=== PATIENT | male | born 1980 | race Two or more races ===

== ENCOUNTER 2020-08-28 13:04 | Inpatient (IN) ==
--- NOTE | 2020-08-28 13:33 | DR.EXTPAIN ---
HPI Time seen Time Seen by Provider: 08/28/20 13:32 PCP Primary Care Physician: MADELINE HPI Comment HPI Comment: PATIENT IS 39YRR OLD MALE IN ER WITH ABDOMINAL SWELLING AND PAIN AND LOWER EXTREMITY PAIN. Complaint/Symptoms Chief Complaint Doctor Comments: ABDOMINAL PAIN AND LOWER EXTREMITY SWELLING. Chief Complaint:: PT C/O INCREASED SWELLING AND PAIN INTO RIGHT LEG X 2-3 WEEKS. PT ALSO C/O SWELLING INTO ABDOMEN COVID-19 Coronavirus risk:travel/contact w/high risk person: No Has patient experienced Coronavirus symptoms: No Nurses notes reviewed Nurses Notes Review: Yes Source History Provided: Patient Mode of arrival Mode of Arrival: Ambulatory Timing Onset of Chief Complaint: 08/28/20 Context History of: None Associated signs and symptoms Associated Signs and Symptoms: Pain, Swelling, Abdominal Pain and Shortness of Breath PMH PMH Past Medical History: No Past Surgical History: No Family History History of Family Medical Conditions: No Social History Does patient currently use any type of tobacco product: No Have you used tobacco products in the last 12 months: No Type of Tobacco Use: None Does any household member use tobacco: No Alcohol Use: None Do you use any recreational Drugs:: No Lives With: Alone Lives Where: Home Travel Risk Coronavirus risk:travel/contact w/high risk person: No Has patient experienced Coronavirus symptoms: No Infectious screening In the last 2 months have you had wt loss of >10#?: NO Have you had fever, night sweats or hemotysis?: No Have you traveled outside the country in the last 6 months?: No Isolation: Standard PE Vital Signs Vitals: Temperature 100.2 F Pulse Rate 114 Respiratory Rate 24 Blood Pressure 183/99 O2 Sat by Pulse Oximetry 98 ROR Labs Reviewed Result Diagrams: 08/28/20 14:16 08/28/20 14:16 Laboratory: WBC 7.3 X10^3/uL (3.6-10.0) 08/28/20 14:16 RBC 2.47 X10^6/uL (4.7-6.0) L 08/28/20 14:16 Hgb 8.4 g/dL (13.5-18.0) L 08/28/20 14:16 Hct 25.4 % (42.0-54.0) L 08/28/20 14:16 MCV 102.6 fL (80.0-100.0) H 08/28/20 14:16 MCH 33.9 pg (27.0-34.0) 08/28/20 14:16 MCHC 33.0 g/dL (33.0-35.0) 08/28/20 14:16 RDW 16.0 % (11.6-16.5) 08/28/20 14:16 Plt Count 32 X10^3/uL (150.0-450.0) L 08/28/20 14:16 MPV 9.9 fL (7.4-11.0) 08/28/20 14:16 Neut % (Auto) 73.9 % (42.0-75.0) 08/28/20 14:16 Lymph % (Auto) 12.1 % (21.0-51.0) L 08/28/20 14:16 Green % (Auto) 10.2 % (0.0-13.0) 08/28/20 14:16 Eos % (Auto) 2.8 % (0.9-2.9) 08/28/20 14:16 Baso % (Auto) 1.0 % (0.2-1.0) 08/28/20 14:16 Neut # (Auto) 5.4 x10^3/uL (2.2-4.8) H 08/28/20 14:16 Lymph # (Auto) 0.9 X10^3/uL (1.3-2.9) L 08/28/20 14:16 Green # (Auto) 0.7 x10^3/uL (0.3-0.8) 08/28/20 14:16 Eos # (Auto) 0.2 x10^3/uL (0.0-0.2) 08/28/20 14:16 Baso # (Auto) 0.1 X10^3/uL (0.0-0.1) 08/28/20 14:16 Absolute Nucleated RBC 0.1 /100WBC 08/28/20 14:16 Sodium 140 mmol/L (136-145) 08/28/20 14:16 Corrected Sodium 141 mmol/L (136-145) 08/28/20 14:16 Potassium 3.6 mmol/L (3.5-5.1) 08/28/20 14:16 Chloride 106 mmol/L (98-107) 08/28/20 14:16 Carbon Dioxide 26.2 mmol/L (21-32) 08/28/20 14:16 BUN 7 mg/dL (7-18) 08/28/20 14:16 Creatinine 0.77 mg/dL (0.70-1.30) 08/28/20 14:16 Est GFR (MDRD) Af Amer > 60 (>60) 08/28/20 14:16 Est GFR (MDRD) Non-Af > 60 (>60) 08/28/20 14:16 Glucose 139 mg/dL (65-99) H 08/28/20 14:16 Calcium 7.7 mg/dL (8.5-10.1) L 08/28/20 14:16 Corrected Calcium 9.5 mg/dL (8.5-10.1) 08/28/20 14:16 Total Bilirubin 5.40 mg/dL (0.2-1.0) H 08/28/20 14:16 AST 161 Units/L (15-37) H 08/28/20 14:16 ALT 46 Units/L (12-78) 08/28/20 14:16 Alkaline Phosphatase 290 Units/L (46-116) H 08/28/20 14:16 B-Natriuretic Peptide 122 pg/mL (0-79) H 08/28/20 14:16 Total Protein 8.0 g/dL (6.4-8.2) 08/28/20 14:16 Albumin 1.8 g/dL (3.4-5.0) L 08/28/20 14:16 Globulin 6.2 g/dL (2.5-4.5) H 08/28/20 14:16 Albumin/Globulin Ratio 0.3 Ratio (1.1-2.1) L 08/28/20 14:16 Amylase 85 Units/L (25-115) 08/28/20 14:16 Lipase 161 Units/L (73-393) 08/28/20 14:16 Specimen Type Clean catch urine 08/28/20 14:11 Urine Color Elisha (YELLOW) 08/28/20 14:11 Urine Appearance Slightly hazy (CLEAR) 08/28/20 14:11 Urine pH 6.0 (5.0 - 8.0) 08/28/20 14:11 Ur Specific [place] 1.025 (1.000-1.030) 08/28/20 14:11 Urine Protein 2+ (NEGATIVE) 08/28/20 14:11 Urine Glucose (UA) Negative (NEGATIVE) 08/28/20 14:11 Urine Ketones 1+ (NEGATIVE) 08/28/20 14:11 Urine Occult Blood 2+ (NEGATIVE) 08/28/20 14:11 Urine Nitrite Negative (NEGATIVE) 08/28/20 14:11 Urine Bilirubin 3+ (NEGATIVE) 08/28/20 14:11 Urine Urobilinogen 3+ (NORMAL) 08/28/20 14:11 Ur Leukocyte Esterase 1+ (NEGATIVE) 08/28/20 14:11 Urine RBC 3-5 /HPF (0-3) A 08/28/20 14:11 Urine WBC 20-30 /HPF (0-5) A 08/28/20 14:11 Ur Squamous Epith Cells Few /HPF (NEGATIVE) 08/28/20 14:11 Amorphous Sediment 1+ /HPF (NEGATIVE) 08/28/20 14:11 Urine Bacteria 2+ /HPF (NEGATIVE) 08/28/20 14:11 Hyaline Casts Few /LPF (NEGATIVE) 08/28/20 14:11 Other Casts Rare /LPF (NEGATIVE) 08/28/20 14:11 Urine Mucus Numerous /HPF (NEGATIVE) 08/28/20 14:11 Ur Culture Indicated? Yes/culture set up 08/28/20 14:11 SARS CoV-2 RNA Rapid TINO Negative (NEGATIVE) 08/28/20 15:01 Opioid Opioid Risk Tool Age ([place] box if 16-45): Yes History of Preadolescent Sexual Abuse: No Total: 1 Total Score Risk Category: Low Risk Copyright: Alejandro GARCIA predicting aberrant behaviors Instructions Instructions: Otitis Media, Adult, [id number] Forms: Precautions for COVID19 Patient Portal Social Distancing
[2020-08-28 14:24] LABS: BILIRUBIN,URINE 3+ (NEGATIVE); BLOOD/HEMOGLOBIN,URINE 2+ (NEGATIVE); GLUCOSE, URINE NEGATIVE (NEGATIVE); KETONES,URINE 1+ (NEGATIVE); LEUKOCYTE ESTERASE ,URINE 1+ (NEGATIVE); NITRITES,URINE NEGATIVE (NEGATIVE); PROTEIN,URINE 2+ (NEGATIVE); UROBILINOGEN,URINE 3+ (NORMAL)
[2020-08-28 14:25] LABS: BASOPHILS # (AUTO) 0.1 X10^3/uL (0.0-0.1); EOSINOPHILS # (AUTO) 0.2 x10^3/uL (0.0-0.2); EOSINOPHILS % (AUTO) 2.8 % (0.9-2.9); HEMATOCRIT 25.4 % (42.0-54.0); HEMOGLOBIN 8.4 g/dL (13.5-18.0); LYMPHOCYTES # (AUTO) 0.9 X10^3/uL (1.3-2.9); LYMPHOCYTES % (AUTO) 12.1 % (21.0-51.0); MEAN CORPUSCULAR HEMOGLOBIN 33.9 pg (27.0-34.0); MEAN CORPUSCULAR VOLUME 102.6 fL (80.0-100.0); MEAN PLATELET VOLUME 9.9 fL (7.4-11.0); MONOCYTES # (AUTO) 0.7 x10^3/uL (0.3-0.8); MONOCYTES % (AUTO) 10.2 % (0.0-13.0); NEUTROPHILS # (AUTO) 5.4 x10^3/uL (2.2-4.8); NEUTROPHILS % (AUTO) 73.9 % (42.0-75.0); PLATELET COUNT 32 X10^3/uL (150.0-450.0); RED BLOOD COUNT 2.47 X10^6/uL (4.7-6.0); WHITE BLOOD COUNT 7.3 X10^3/uL (3.6-10.0)
[2020-08-28 14:40] LABS: ALANINE AMINOTRANSFERASE 46 Units/L (12-78); ALBUMIN 1.8 g/dL (3.4-5.0); ALKALINE PHOSPHATASE 290 Units/L (46-116); ASPARTATE AMINO TRANSFERASE 161 Units/L (15-37); BLOOD UREA NITROGEN 7 mg/dL (7-18); CALCIUM 7.7 mg/dL (8.5-10.1); CARBON DIOXIDE 26.2 mmol/L (21-32); CHLORIDE 106 mmol/L (98-107); COR CA(FOR HYPOALB) 9.5 mg/dL (8.5-10.1); COR NA(FOR HYPERGLY) 141 mmol/L (136-145); CREATININE 0.77 mg/dL (0.70-1.30); SODIUM 140 mmol/L (136-145); eGFR NON BLACK RACES > 60 (>60)
[2020-08-28 14:40] LABS: APPEARANCE,URINE SLIGHTLY HAZY (CLEAR); COLOR,URINE AMBER (YELLOW)
[2020-08-28 14:41] LABS: BACTERIA,URINE 2+ /HPF (NEGATIVE); HYALINE CASTS, URINE FEW /LPF (NEGATIVE); MUCUS,URINE NUMEROUS /HPF (NEGATIVE)
[2020-08-28 14:42] LABS: AMORPHOUS SEDIMENT,UR 1+ /HPF (NEGATIVE); OTHER CASTS, URINE RARE /LPF (NEGATIVE); SQUAMOUS EPITHELIAL CELL,UR FEW /HPF (NEGATIVE)
--- NOTE | 2020-08-28 14:52 | CT ---
PROCEDURE: CT Abdomen and Pelvis without Contrast .HISTORY: Increased swelling and pain to abdomen.TECHNIQUE: Axial images were performed through the abdomen and pelvis without the administration of IV contrast with multiplanar reformations . Oral contrast was not administered . Dose reduction techniques including Automated Exposure Control (AEC) and adjustment of mA and kV were utilized .COMPARISON: None .TECHNICAL QUALITY: Satisfactory .FINDINGS:Clear lung bases.Irregular liver contour consistent with cirrhosis with mild hepatomegaly at 26.5 cm. Spleen and adrenals show no significant abnormality. Mild peripancreatic stranding could represent pancreatitis with no pseudocyst. Kidneys show no stones or obstruction.Small gallstones in the gallbladder with thickened wall and normal size biliary tree.Moderate ascites throughout the abdomen with no pneumoperitoneum.Normal aorta.No lymphadenopathy.No bowel obstruction or inflammation. Normal appendix right lower quadrant.Large amount of fluid in the pelvis with no masses. Normal urinary bladder.No acute bony abnormality.IMPRESSION:1. Cirrhosis with moderate to large amount of ascites present.2. Cholelithiasis with thickened gallbladder wall and could be related to acute cholecystitis or patient's ascites.3. Possible mild acute pancreatitis and clinical correlation recommended.Electronically signed by: Everett Little (August 28, 2020 14:50:14)
[2020-08-28 15:05] LABS: AMYLASE 85 Units/L (25-115); LIPASE 161 Units/L (73-393)
--- NOTE | 2020-08-28 15:32 | RAD ---
EXAM: CHEST X-RAYHISTORY: Increased swelling and pain of abdomen.TECHNIQUE: AP chest x-ray dated 08/28/2020 at 2:24 PM.COMPARISON: None available.FINDINGS:Note: Exam degraded by shallow inspiratory effort.There is a shallow inspiratory effort with mild prominence of the bronchopulmonary markings; while the findings may represent artifactual change from shallow inspiratory effort, mild noncardiogenic (or cardiogenic) pulmonary congestion, bronchitis, and early bronchopneumonia cannot be excluded in the appropriate clinical setting. Clinical correlation is advised. No focal consolidative lung infiltrate, pleural effusion, or pneumothorax is seen. The heart size and mediastinum are within normal limits. The visualized bony structures are within normal limits.IMPRESSION:1. Shallow inspiratory effort with mild prominence of the bronchopulmonary markings; DDX includes artifactual change from shallow inspiratory effort, mild noncardiogenic (or cardiogenic) pulmonary congestion, mild bronchitis, and interstitial pneumonia (e.g. Covid pneumonia) in the appropriate clinical setting. Recommend clinical correlation and appropriate follow evaluation as clinically warranted.2. Consider follow-up evaluation with noncontrast chest CT to rule out Covid pneumonia as clinically warranted.Electronically signed by: Lore Hunt (August 28, 2020 15:30:32)
[2020-08-28] MEDS ORDERED: LASIX IVP ONE ×3 (15:45→21:00)
[2020-08-28] MEDS ORDERED: PEPCID 20 MG IV PREMIX* 20 MG/50 ML BAG IV PRN (16:28)
[2020-08-28] MEDS ORDERED: LASIX IVP SCH (17:00)
[2020-08-28] MEDS ORDERED: NS 250 ML IV 250 ML IV ONE (17:11)
[2020-08-28] MEDS: ROCEPHIN VIAL 1 GRAM 1 G in NS 100 ML IV + SPIKE MINIBAG* 100 ML IV SCH (17:28)
[2020-08-28] MEDS: CHRONULAC PO SCH ×2 (18:16→21:00)
[2020-08-28] MEDS: ZITHROMAX INJ 500 MG VIAL 500 MG in NS 250 ML IV 250 ML IV SCH (19:27)
[2020-08-28] MEDS ORDERED: DUONEB 0.5 MG/3 MG (3 mL) NEB ONE (19:57)
[2020-08-28] MEDS: DUONEB 0.5 MG/3 MG (3 mL) NEB SCH (21:00)
[2020-08-29 05:35] LABS: BASOPHILS # (AUTO) 0.1 X10^3/uL (0.0-0.1); BASOPHILS % (AUTO) 1.2 % (0.2-1.0); EOSINOPHILS # (AUTO) 0.2 x10^3/uL (0.0-0.2); EOSINOPHILS % (AUTO) 3.2 % (0.9-2.9); HEMATOCRIT 23.5 % (42.0-54.0); HEMOGLOBIN 7.8 g/dL (13.5-18.0); LYMPHOCYTES # (AUTO) 1.3 X10^3/uL (1.3-2.9); LYMPHOCYTES % (AUTO) 16.6 % (21.0-51.0); MEAN CORPUSCULAR HEMOGLOBIN 34.3 pg (27.0-34.0); MEAN CORPUSCULAR HGB CONC 33.2 g/dL (33.0-35.0); MEAN CORPUSCULAR VOLUME 103.4 fL (80.0-100.0); MEAN PLATELET VOLUME 9.6 fL (7.4-11.0); MONOCYTES # (AUTO) 0.9 x10^3/uL (0.3-0.8); MONOCYTES % (AUTO) 12.1 % (0.0-13.0); NEUTROPHILS # (AUTO) 5.1 x10^3/uL (2.2-4.8); NEUTROPHILS % (AUTO) 66.9 % (42.0-75.0); PLATELET COUNT 35 X10^3/uL (150.0-450.0); RED BLOOD COUNT 2.27 X10^6/uL (4.7-6.0); RED CELL DISTRIBUTION WIDTH 16.1 % (11.6-16.5); WHITE BLOOD COUNT 7.6 X10^3/uL (3.6-10.0)
[2020-08-29] MEDS: CHRONULAC PO SCH ×3 (05:46→21:25)
[2020-08-29 05:48] LABS: ALANINE AMINOTRANSFERASE 38 Units/L (12-78); ALBUMIN 1.7 g/dL (3.4-5.0); ALKALINE PHOSPHATASE 245 Units/L (46-116); AMYLASE 70 Units/L (25-115); ASPARTATE AMINO TRANSFERASE 146 Units/L (15-37); BLOOD UREA NITROGEN 8 mg/dL (7-18); CALCIUM 7.6 mg/dL (8.5-10.1); CARBON DIOXIDE 24.3 mmol/L (21-32); CHLORIDE 105 mmol/L (98-107); COR CA(FOR HYPOALB) 9.4 mg/dL (8.5-10.1); LIPASE 132 Units/L (73-393); SODIUM 139 mmol/L (136-145); TOTAL PROTEIN 7.5 g/dL (6.4-8.2); eGFR NON BLACK RACES > 60 (>60)
[2020-08-29] MEDS: DUONEB 0.5 MG/3 MG (3 mL) NEB SCH ×4 (08:41→20:15)
[2020-08-29] MEDS: ROCEPHIN VIAL 1 GRAM 1 G in NS 100 ML IV + SPIKE MINIBAG* 100 ML IV SCH (09:23)
[2020-08-29] MEDS: LASIX IVP SCH ×2 (09:23→16:56)
[2020-08-29 10:53] VITALS: BMI 34.4
[2020-08-29] MEDS: ZITHROMAX INJ 500 MG VIAL 500 MG in NS 250 ML IV 250 ML IV SCH (10:56)
[2020-08-29 11:53] LABS: TOTAL PROTEIN,PERITONEAL FLUID 1.5
--- NOTE | 2020-08-29 12:39 | VAS ---
HISTORYBILAT LE SWELLINGSTUDYLOWER EXT VENOUS, BILATERALCOMPARISONNoneTECHNIQUEMultiple warren scale and color flow Doppler images of the deep venous system were obtained of the right and left lower extremity.FINDINGSThe deep venous system of the right and left lower extremities were evaluated from the level of the common femoral vein through the popliteal vein. Normal color flow and augmentation can be observed. In addition, normal compression is seen throughout the deep venous system. Small inguinal lymph node are noted which are probably reactive.IMPRESSIONNegative for DVT.Electronically signed by: NATALIA LY (August 29, 2020 12:37:18)
--- NOTE | 2020-08-29 13:44 | DR.H&P ---
H&P - History & Physical for Day of: H&P Date: 08/28/20 - Chief Complaint Chief Complaint: SWELLING TO STOMACH AND LEGS - History of Present Illness History of Present Illness: PT IS 39HM ER ADMISSION WITH CO INCREASED LOWER LEG SWELLING AND SWELLING TO STOMACH. PT DENIES ANY KNOWN HISTORY OF COVID OR LIVER DISEASE. PT REPORTS IS DOES DRINK ETOH. PT HAD ELEVATED LFTS AND ASCITES. PT ADMITTED FOR TREATMENT OF ACUTE ILLNESS. COVID NEGATIVE ON ADMISSION. - Past Medical History Past Medical History: Liver Disease - Social History Does patient currently use any type of tobacco product: No Have you used tobacco products in the last 12 months: No Type of Tobacco Use: None Does any household member use tobacco: No Alcohol Use: Occasionally, Other - Medications Home Medications: No Known Drug Allergies Allergy (Verified 08/28/20 14:04) CONTINUE taking the following medications NK 08/28/20 [History] - Review of Systems Constitutional: Malaise Eyes: No Symptoms Reported ENT: No Symptoms Reported Respiratory: SOB with Excertion Cardiovascular: No Symptoms Reported Gastrointestinal: Abdominal Pain Genitourinary: No Symptoms Reported Musculoskeletal: Back Pain Skin: No Symptoms Reported Neurological: Weakness - Physical Exam Vital Signs: Temperature 98.5 F Pulse Rate [Left Brachial] 95 Pulse Rate 102 Respiratory Rate 20 Blood Pressure [Left Arm] 156/79 Blood Pressure 183/99 O2 Sat by Pulse Oximetry 96 Oriented: Normal Eyes: Other (JAUNDICE SCLERA) Ear: Normal Nose: Normal Throat: Normal Respiratory: RLL Diminished, LLL Diminished Cardiovascular: Edema : Normal Palpation: Liver Enlarged, Other (DIFFUSE ABDOMINAL DISTENTION) Tenderness: Diffuse Skin: Normal Musculoskeletal: Back:Lumbar Psychiatric: Normal Mood Description: Calm Speech Pattern: Clear, Appropriate - Assessment/Plan (1) Ascites Status: Acute Plan: ADMIT, STRICT I&OS, HEPATITIS PANEL. PPI THERAPY, INR/PT. OCCULT STOOL, AM LABS. CONSULT DR MCMAHON, GERMÁN AND RESP CONSULT (2) Cirrhosis Status: Acute (3) Cholelithiasis Status: Acute - Allergies Allergies/Adverse Reactions: Allergies Allergy/AdvReac Type Severity Reaction Status Date / Time No Known Drug Allergies Allergy Verified 08/28/20 14:04
[2020-08-29] MEDS ORDERED: POTASSIUM CHL 40 MEQ/NS 0.45% 500 ML IV PRN (15:36)
[2020-08-29] MEDS ORDERED: POTASSIUM CHL 60 MEQ/NS 0.45% 500 ML IV PRN (15:36)
[2020-08-29] MEDS ORDERED: POTASSIUM CHLORIDE LIQ 20 MEQ UDC PO PRN (15:36)
[2020-08-29] MEDS ORDERED: MICRO K EXTEN CAP 10 MEQ PO PRN (15:36)
[2020-08-29] MEDS ORDERED: K-RIDER 10 MEQ/NS 100 ML 10 MEQ/100 ML BAG IV PRN (15:36)
[2020-08-29] MEDS ORDERED: KLOR-CON PO PRN (15:36)
[2020-08-29] MEDS ORDERED: LIBRIUM PO SCH (16:00)
[2020-08-29] MEDS: LIBRIUM PO SCH ×2 (16:55→21:25)
[2020-08-29] MEDS: K-DUR TAB 20 MEQ PO PRN (16:56)
[2020-08-29] MEDS: MAGNESIUM SULFATE 1 GRAM/100 mL PREMIX 1 GM/100 ML BAG IV PRN ×2 (16:56→18:42)
[2020-08-30 05:29] LABS: BASOPHILS # (AUTO) 0.1 X10^3/uL (0.0-0.1); BASOPHILS % (AUTO) 1.1 % (0.2-1.0); EOSINOPHILS # (AUTO) 0.3 x10^3/uL (0.0-0.2); EOSINOPHILS % (AUTO) 4.8 % (0.9-2.9); HEMOGLOBIN 8.1 g/dL (13.5-18.0); LYMPHOCYTES # (AUTO) 0.9 X10^3/uL (1.3-2.9); LYMPHOCYTES % (AUTO) 13.6 % (21.0-51.0); MEAN CORPUSCULAR HEMOGLOBIN 34.7 pg (27.0-34.0); MEAN CORPUSCULAR HGB CONC 33.5 g/dL (33.0-35.0); MEAN CORPUSCULAR VOLUME 103.4 fL (80.0-100.0); MEAN PLATELET VOLUME 9.9 fL (7.4-11.0); MONOCYTES # (AUTO) 0.9 x10^3/uL (0.3-0.8); MONOCYTES % (AUTO) 13.9 % (0.0-13.0); NEUTROPHILS # (AUTO) 4.2 x10^3/uL (2.2-4.8); NEUTROPHILS % (AUTO) 66.6 % (42.0-75.0); PLATELET COUNT 37 X10^3/uL (150.0-450.0); RED BLOOD COUNT 2.32 X10^6/uL (4.7-6.0); WHITE BLOOD COUNT 6.3 X10^3/uL (3.6-10.0)
[2020-08-30 05:36] LABS: ALANINE AMINOTRANSFERASE 31 Units/L (12-78); ALBUMIN 1.4 g/dL (3.4-5.0); ALKALINE PHOSPHATASE 216 Units/L (46-116); ASPARTATE AMINO TRANSFERASE 109 Units/L (15-37); BLOOD UREA NITROGEN 7 mg/dL (7-18); CALCIUM 7.3 mg/dL (8.5-10.1); CARBON DIOXIDE 27.9 mmol/L (21-32); CHLORIDE 107 mmol/L (98-107); COR CA(FOR HYPOALB) 9.4 mg/dL (8.5-10.1); CREATININE 0.68 mg/dL (0.70-1.30); MAGNESIUM 1.7 mg/dL (1.7-2.9); SODIUM 140 mmol/L (136-145); TOTAL PROTEIN 6.7 g/dL (6.4-8.2); eGFR NON BLACK RACES > 60 (>60)
[2020-08-30] MEDS: CHRONULAC PO SCH ×3 (06:15→21:57)
[2020-08-30] MEDS: LIBRIUM PO SCH ×3 (06:15→21:57)
[2020-08-30] MEDS: K-DUR TAB 20 MEQ PO PRN (06:37)
[2020-08-30] MEDS: DUONEB 0.5 MG/3 MG (3 mL) NEB SCH ×4 (09:16→20:55)
[2020-08-30] MEDS: LASIX IVP SCH ×2 (09:42→16:28)
[2020-08-30] MEDS: ALBUMIN HUMAN 25%- 100 ML 100 ML IV SCH (09:42)
[2020-08-30] MEDS: ROCEPHIN VIAL 1 GRAM 1 G in NS 100 ML IV + SPIKE MINIBAG* 100 ML IV SCH (09:43)
[2020-08-30] MEDS: ZITHROMAX INJ 500 MG VIAL 500 MG in NS 250 ML IV 250 ML IV SCH (09:43)
--- NOTE | 2020-08-30 10:38 | RAD ---
HISTORYSOBSTUDYCHEST x-ray, 1 VIEWCOMPARISONX-ray 08/28/2020FINDINGSPoor inspiration with crowding of lung markings. No suggestion of CHF. No pneumothorax, focal infiltrate, or pleural effusion is seen.IMPRESSIONNo acute cardiopulmonary abnormality is seen.Electronically signed by: Darius Soria (August 30, 2020 10:36:21)
[2020-08-30] MEDS: MAGNESIUM SULFATE 1 GRAM/100 mL PREMIX 1 GM/100 ML BAG IV PRN ×2 (14:04→16:28)
[2020-08-31] MEDS: LIBRIUM PO SCH (05:36)
[2020-08-31] MEDS: CHRONULAC PO SCH (05:36)
[2020-08-31 05:55] LABS: AMMONIA 30 umol/L (11-32)
[2020-08-31 05:57] LABS: BASOPHILS # (AUTO) 0.1 X10^3/uL (0.0-0.1); BASOPHILS % (AUTO) 1.2 % (0.2-1.0); EOSINOPHILS # (AUTO) 0.4 x10^3/uL (0.0-0.2); EOSINOPHILS % (AUTO) 5.3 % (0.9-2.9); HEMATOCRIT 27.2 % (42.0-54.0); HEMOGLOBIN 8.9 g/dL (13.5-18.0); LYMPHOCYTES % (AUTO) 13.4 % (21.0-51.0); MEAN CORPUSCULAR HEMOGLOBIN 34.1 pg (27.0-34.0); MEAN CORPUSCULAR HGB CONC 32.8 g/dL (33.0-35.0); MEAN CORPUSCULAR VOLUME 104.2 fL (80.0-100.0); MEAN PLATELET VOLUME 9.6 fL (7.4-11.0); MONOCYTES # (AUTO) 0.9 x10^3/uL (0.3-0.8); MONOCYTES % (AUTO) 12.5 % (0.0-13.0); NEUTROPHILS % (AUTO) 67.6 % (42.0-75.0); PLATELET COUNT 49 X10^3/uL (150.0-450.0); RED BLOOD COUNT 2.61 X10^6/uL (4.7-6.0); RED CELL DISTRIBUTION WIDTH 15.9 % (11.6-16.5); WHITE BLOOD COUNT 7.4 X10^3/uL (3.6-10.0)
[2020-08-31 06:11] LABS: ALANINE AMINOTRANSFERASE 37 Units/L (12-78); ALBUMIN 1.8 g/dL (3.4-5.0); ALKALINE PHOSPHATASE 224 Units/L (46-116); ASPARTATE AMINO TRANSFERASE 110 Units/L (15-37); BLOOD UREA NITROGEN 8 mg/dL (7-18); CALCIUM 7.4 mg/dL (8.5-10.1); CARBON DIOXIDE 25.6 mmol/L (21-32); CHLORIDE 106 mmol/L (98-107); COR CA(FOR HYPOALB) 9.2 mg/dL (8.5-10.1); COR NA(FOR HYPERGLY) 141 mmol/L (136-145); CREATININE 0.77 mg/dL (0.70-1.30); SODIUM 140 mmol/L (136-145); TOTAL PROTEIN 7.1 g/dL (6.4-8.2); eGFR NON BLACK RACES > 60 (>60)
[2020-08-31 08:18] VITALS: BP 120/67
[2020-08-31] MEDS: ROCEPHIN VIAL 1 GRAM 1 G in NS 100 ML IV + SPIKE MINIBAG* 100 ML IV SCH (09:18)
[2020-08-31] MEDS: LASIX IVP SCH (09:18)
[2020-08-31] MEDS: ALBUMIN HUMAN 25%- 100 ML 100 ML IV SCH (09:18)
[2020-08-31] MEDS: ZITHROMAX INJ 500 MG VIAL 500 MG in NS 250 ML IV 250 ML IV SCH (09:19)
[2020-08-31] MEDS: DUONEB 0.5 MG/3 MG (3 mL) NEB SCH (09:23)
--- NOTE | 2020-08-31 09:33 | DR.PROGNOT ---
Hospital Progress Notes - Progress Note for Day of: Progress Note Date: 08/31/20 - Chief Complaint Chief Complaint: feeling better after paracentesis and drainage of large amount of ascites . tolerating diet well . LFT and bilirubin are still elevated . catheter came out today . - Past Medical Family Social History Past Med/Fam/Surg Hx: No changes since H&P Allergies: Allergies No Known Drug Allergies Allergy (Verified 08/28/20 14:04) - Review Of Systems ROS: No change since H&P - Vital Signs Vital Signs: Temperature 98.1 F Pulse Rate [Left Brachial] 88 Pulse Rate 89 Respiratory Rate 18 Blood Pressure [Left Arm] 120/67 Blood Pressure 183/99 O2 Sat by Pulse Oximetry 100 - Physical Exam Oriented: Normal Eyes: Other (JAUNDICE SCLERA) Ear: Normal Nose: Normal Throat: Normal Cardiovascular: Normal, Edema : Normal GI:Palpation: Liver Enlarged, Other (soft abdomen with mild distention .. BS+) GI: Tenderness: Diffuse Skin: Normal Musculoskeletal: Back:Lumbar Psychiatric: Normal Mood Description: Calm Speech Pattern: Clear, Appropriate - Laboratory and Diagnostics Result Diagrams: 08/31/20 04:37 08/31/20 04:37 Labs: 08/29/20 11:26 Paracentesis - Preliminary 08/28/20 17:49 Blood Blood Culture - Preliminary 08/28/20 17:43 Blood Blood Culture - Preliminary 08/29/20 11:26 Paracentesis Gram Stain - Final 08/28/20 14:11 Urine,Clean Catch Urine Culture - Final Laboratory WBC 7.4 X10^3/uL (3.6-10.0) 08/31/20 04:37 RBC 2.61 X10^6/uL (4.7-6.0) L 08/31/20 04:37 Hgb 8.9 g/dL (13.5-18.0) L 08/31/20 04:37 Hct 27.2 % (42.0-54.0) L 08/31/20 04:37 MCV 104.2 fL (80.0-100.0) H 08/31/20 04:37 MCH 34.1 pg (27.0-34.0) H 08/31/20 04:37 MCHC 32.8 g/dL (33.0-35.0) L 08/31/20 04:37 RDW 15.9 % (11.6-16.5) 08/31/20 04:37 Plt Count 49 X10^3/uL (150.0-450.0) L 08/31/20 04:37 MPV 9.6 fL (7.4-11.0) 08/31/20 04:37 Neut % (Auto) 67.6 % (42.0-75.0) 08/31/20 04:37 Lymph % (Auto) 13.4 % (21.0-51.0) L 08/31/20 04:37 [place] % (Auto) 12.5 % (0.0-13.0) 08/31/20 04:37 Eos % (Auto) 5.3 % (0.9-2.9) H 08/31/20 04:37 Baso % (Auto) 1.2 % (0.2-1.0) H 08/31/20 04:37 Neut # (Auto) 5.0 x10^3/uL (2.2-4.8) H 08/31/20 04:37 Lymph # (Auto) 1.0 X10^3/uL (1.3-2.9) L 08/31/20 04:37 [place] # (Auto) 0.9 x10^3/uL (0.3-0.8) H 08/31/20 04:37 Eos # (Auto) 0.4 x10^3/uL (0.0-0.2) H 08/31/20 04:37 Baso # (Auto) 0.1 X10^3/uL (0.0-0.1) 08/31/20 04:37 Absolute Nucleated RBC 0.1 /100WBC 08/31/20 04:37 PT 19.0 SECONDS (11.8-14.3) 08/28/20 16:10 INR Target Range - 08/28/20 16:10 INR 1.68 (0.8-1.3) H 08/28/20 16:10 APTT 44.3 SECONDS (22.9-36.5) H 08/28/20 16:10 PTT Comment - 08/28/20 16:10 Sodium 140 mmol/L (136-145) 08/31/20 04:37 Corrected Sodium 141 mmol/L (136-145) 08/31/20 04:37 Potassium 3.4 mmol/L (3.5-5.1) L 08/31/20 04:37 Chloride 106 mmol/L (98-107) 08/31/20 04:37 Carbon Dioxide 25.6 mmol/L (21-32) 08/31/20 04:37 BUN 8 mg/dL (7-18) 08/31/20 04:37 Creatinine 0.77 mg/dL (0.70-1.30) 08/31/20 04:37 Est GFR (MDRD) Af Amer > 60 (>60) 08/31/20 04:37 Est GFR (MDRD) Non-Af > 60 (>60) 08/31/20 04:37 Glucose 124 mg/dL (65-99) H 08/31/20 04:37 Lactic Acid 1.8 mmol/L (0.4-2.0) 08/28/20 23:28 Calcium 7.4 mg/dL (8.5-10.1) L 08/31/20 04:37 Corrected Calcium 9.2 mg/dL (8.5-10.1) 08/31/20 04:37 Magnesium 1.7 mg/dL (1.7-2.9) 08/30/20 04:20 Total Bilirubin 5.60 mg/dL (0.2-1.0) H 08/31/20 04:37 AST 110 Units/L (15-37) H 08/31/20 04:37 ALT 37 Units/L (12-78) 08/31/20 04:37 Alkaline Phosphatase 224 Units/L (46-116) H 08/31/20 04:37 Ammonia 30 umol/L (11-32) 08/31/20 04:37 B-Natriuretic Peptide 122 pg/mL (0-79) H 08/28/20 14:16 Total Protein 7.1 g/dL (6.4-8.2) 08/31/20 04:37 Albumin 1.8 g/dL (3.4-5.0) L 08/31/20 04:37 Globulin 5.3 g/dL (2.5-4.5) H 08/31/20 04:37 Albumin/Globulin Ratio 0.3 Ratio (1.1-2.1) L 08/31/20 04:37 Amylase 70 Units/L (25-115) 08/29/20 04:18 Lipase 132 Units/L (73-393) 08/29/20 04:18 Specimen Type Clean catch urine 08/28/20 14:11 Urine Color Elisha (YELLOW) 08/28/20 14:11 Urine Appearance Slightly hazy (CLEAR) 08/28/20 14:11 Urine pH 6.0 (5.0 - 8.0) 08/28/20 14:11 Ur Specific [place] 1.025 (1.000-1.030) 08/28/20 14:11 Urine Protein 2+ (NEGATIVE) 08/28/20 14:11 Urine Glucose (UA) Negative (NEGATIVE) 08/28/20 14:11 Urine Ketones 1+ (NEGATIVE) 08/28/20 14:11 Urine Occult Blood 2+ (NEGATIVE) 08/28/20 14:11 Urine Nitrite Negative (NEGATIVE) 08/28/20 14:11 Urine Bilirubin 3+ (NEGATIVE) 08/28/20 14:11 Urine Urobilinogen 3+ (NORMAL) 08/28/20 14:11 Ur Leukocyte Esterase 1+ (NEGATIVE) 08/28/20 14:11 Urine RBC 3-5 /HPF (0-3) A 08/28/20 14:11 Urine WBC 20-30 /HPF (0-5) A 08/28/20 14:11 Ur Squamous Epith Cells Few /HPF (NEGATIVE) 08/28/20 14:11 Amorphous Sediment 1+ /HPF (NEGATIVE) 08/28/20 14:11 Urine Bacteria 2+ /HPF (NEGATIVE) 08/28/20 14:11 Hyaline Casts Few /LPF (NEGATIVE) 08/28/20 14:11 Other Casts Rare /LPF (NEGATIVE) 08/28/20 14:11 Urine Mucus Numerous /HPF (NEGATIVE) 08/28/20 14:11 Ur Culture Indicated? Yes/culture set up 08/28/20 14:11 Peritoneal Tot Protein 1.5 08/29/20 11:26 Peritoneal Glucose 160 08/29/20 11:26 Stool Description 10 g brown/liquid 08/29/20 04:12 Stl Occult Blood (IFOB) Positive (NEGATIVE) A 08/29/20 04:12 SARS CoV-2 RNA Rapid TNIO Negative (NEGATIVE) 05/09/21 15:01 Cytology Specimen To follow 08/29/20 11:26 - Assessment and Plan 1: liver cirrhosis and ascitis , portal HTN , s/p paracentesis . Pt could be discharged on [place] , k supplement . to follow in 10 days .. - Problem Patient Problems: Patient Problems Cirrhosis (Acute) K74.60 Ascites (Acute) R18.8 Cholelithiasis (Acute) K80.20 Acute cholecystitis (Acute) K81.0 Pancreatitis (Acute) K85.90
[2020-09-01 06:03] LABS: HEPATITIS B SURFACE ANTIGEN Negative (Negative)
== END 2020-08-31 11:50 | disposition home or self-care (01) | DRG 947 ==
LOC: ER 13:08 → MED/SURG 15:57
PROVIDERS: ADMIT Internal Medicine; ATTEND Internal Medicine
DX: R10.9 Unspecified abdominal pain; K85.90 Acute pancreatitis without necrosis or infection, unspecified; R06.02 Shortness of breath; D69.1 Qualitative platelet defects; K74.60 Unspecified cirrhosis of liver; F10.10 Alcohol abuse, uncomplicated; R18.8 Other ascites; Z20.822 Contact with and (suspected) exposure to COVID-19; M79.89 Other specified soft tissue disorders; K80.20 Calculus of gallbladder without cholecystitis without obstruction; K76.6 Portal hypertension; J18.9 Pneumonia, unspecified organism

== ENCOUNTER 2020-09-23 14:42 | Inpatient (IN) ==
[2020-09-23 14:51] VITALS: BMI 32.5
--- NOTE | 2020-09-23 15:27 | DR.ABDMALE ---
HPI Time seen Time Seen by Provider: 09/23/20 15:20 PCP Primary Care Physician: JERSEY HPI comment HPI Comment: PATIENT IS 39YR OLD MALE IN ER WITH ABDOMINAL DISTENSION AND TENSE ASCITIS THAT IS PROGRESIVE FOR FEW WEEKS. GETTING WORSE. LOWER LEGS SWOLLEN AND HAVING PRURITUS. DYSPNEA ON EXERTION ANW AT REST. PAIN IS 10/10 RADIATING TO THE BACK. NO FEVER. IN HOSPITAL AT THIS FACILITY 08/28/2020 FOR SIMILAR SYMPTOM. Complaint Chief Complaint Doctors Comments: ASCITIS, TENSE SWELLING. Chief Complaint:: PATIENT CAME ER REPORTS ABDOMINAL SWELLING COVID-19 Coronavirus risk:travel/contact w/high risk person: No Has patient experienced Coronavirus symptoms: No Reviewed Nurses Notes Review: Yes Mode of arrival Mode of Arrival: Ambulatory Timing Onset of Chief Complaint: 09/17/20 Came on: Suddenly Duration Duration: Constant Duration: Days Location Location: Diffuse Severity Severity: Moderate Quality Quality: Generalized Context Onset: Gradually History of: Similar pain (dx) Modifying factors Worsening Factors: Exertion Improving Factors: Lying Still Associated signs and symptoms Associated Signs and Symptoms: Other (SOB.) Other history Other History: CIRRHOSIS OF THE LIVER, ASCITIS PMH PMH Past Medical History: Yes Past Medical History: Liver Disease Past Medical History Comment: ABDOMINAL PAIN, PANCREATITIS, ASCITES, CIRRHOSIS Past Surgical History: Yes Surgical History: Cholecystectomy Family History History of Family Medical Conditions: No Social History Alcohol Use: Other Do you use any recreational Drugs:: No Travel Risk Coronavirus risk:travel/contact w/high risk person: No Has patient experienced Coronavirus symptoms: No Infectious screening In the last 2 months have you had wt loss of >10#?: NO Have you had fever, night sweats or hemotysis?: No Have you traveled outside the country in the last 6 months?: No Isolation: Standard ROS Review of Systems Constitutional: See HPI, Weakness and Fatigue; negative Fever Eyes: No Symptoms Reported and See HPI ENTM: No Symptoms Reported; negative Nose Discharge and Nose Congestion Respiratoy: See HPI and Short of Breath; negative Moist Cough and Wheezing Cardiovascular: See HPI and Edema (LOWER EXTREMITY.); negative Chest Pain Gastrointestinal/Abdominal: See HPI, Abdominal Pain and Other (ASCITIS.) Genitourinary: No Symptoms Reported and See HPI; negative Dysuria, Frequency and Hematuria Neurological: See HPI and Weakness; negative Headache and Dizziness Musculoskeletal: See HPI and Back Pain; negative Muscle Pain Integumentary: See HPI, Change in Color and Juandice; negative Rash Hematologic/Lymphatic: See HPI, Easy Bleeding and Easy Bruising; negative Swol gill Glands Endocrine: No Symptoms Reported and See HPI; negative Increased Thirst and Increased Urine Psychiatric: No Symptoms Reported and See HPI All Other Systems: Reviewed and Negative PE Vital Signs Vital Signs: Temp Pulse Resp BP BP Pulse Ox 09/23/20 18:04 79 145/68 100 09/23/20 18:01 81 100 09/23/20 17:45 66 100 09/23/20 17:30 67 138/72 100 09/23/20 17:24 69 136/58 100 09/23/20 17:23 100 09/23/20 14:45 98.7 F 99 H 18 128/81 99 08/31/20 08:00 120/67 General Limitations: No Limitations General Appearance: Alert and In No Apparent Distress Head Head Exam: Normal Inspection and Atraumatic Eyes Eye exam: Normal Appearance, PERRL and Scleral Icterus; negative Conjunctival Injection (PALE CONJUCTIVA.) ENT ENT Exam: Normal Exam, Normal Oropharynx, Normal External Ear Exam and TM's Normal Bilaterally Neck Neck Exam: Normal Inspection and Trachea Midline; negative Tenderness and Lymp hadenopathy Chest Chest Inspection: Normal Inspection and Symmetric Chest Wall Rise; negative Tenderness Respiratory Respiratory Exam: Normal Lung Sounds Bilat; negative Accessory Muscle Use, Chest Wall Tenderness and Respiratory Distress Respiratory Exam: Bilateral: Clear to Auscultation Cardiovascular Cardiovascular Exam: Regular Rate, Normal Rhythm and Normal Heart Sounds; negative Systolic Murmur and Diastolic Murmur Abdominal Exam Abdominal Exam: Normal Bowel Sounds, Distention, Tenderness and Ascites (TENSE.) Abdominal Tenderness: Diffuse and Moderate Rectal Rectal Exam: Deferred Back Back Exam: Normal Inspection; negative (R) CVA Tenderness and (L) CVA Tenderness Extremeties Extremities Exam: Normal Capillary Refill and Edema; negative Tenderness Exam: Male: Deferred Neurologic Neurological Exam: Alert and Oriented X3; negative Motor Sensory Deficit Psychiatric Psychiatric Exam: Normal Affect and Normal Mood Skin Skin Exam: Warm, Dry, Intact, Normal Color and Other (JAUNDICE) MDM Additional Information Obtained From Additional information provided by: Family (OFFICIAL GREETER.) Differential Diagnosis Differential Diagnosis: Pancreatitis and Urinary tract infection Other differential diagnosis: ASCITIS, CIRRHOSIS, ABDOMINAL PAIN, JAUDICE, ANEMIA COURSE Treatment Treatment: SEE ORDERS. LASIX 40MG IV AND VIT K 10MG S/C. IN ER. Consultation Consultation Comments: DISCUSSED PATIENT WITH DR. PUTNAM. HE WILL ADMIT PATIENT. Education/Counseling Education/Counseling: Patient Educated On: Diagnosis and Needs for Follow Up ROR Labs Reviewed Laboratory Results Reviewed?: Yes Result Diagrams: 09/23/20 15:32 09/23/20 15:32 Laboratory: WBC 11.3 X10^3/uL (3.6-10.0) H 09/23/20 15:32 RBC 2.69 X10^6/uL (4.7-6.0) L 09/23/20 15:32 Hgb 8.9 g/dL (13.5-18.0) L 09/23/20 15:32 Hct 26.3 % (42.0-54.0) L 09/23/20 15:32 MCV 97.6 fL (80.0-100.0) 09/23/20 15:32 MCH 32.9 pg (27.0-34.0) 09/23/20 15:32 MCHC 33.7 g/dL (33.0-35.0) 09/23/20 15:32 RDW 16.4 % (11.6-16.5) 09/23/20 15:32 Plt Count 66 X10^3/uL (150.0-450.0) L 09/23/20 15:32 MPV 9.8 fL (7.4-11.0) 09/23/20 15:32 Neut % (Auto) 68.0 % (42.0-75.0) 09/23/20 15:32 Lymph % (Auto) 16.2 % (21.0-51.0) L 09/23/20 15:32 [place] % (Auto) 7.6 % (0.0-13.0) 09/23/20 15:32 Eos % (Auto) 7.5 % (0.9-2.9) H 09/23/20 15:32 Baso % (Auto) 0.7 % (0.2-1.0) 09/23/20 15:32 Neut # (Auto) 7.7 x10^3/uL (2.2-4.8) H 09/23/20 15:32 Lymph # (Auto) 1.8 X10^3/uL (1.3-2.9) 09/23/20 15:32 [place] # (Auto) 0.9 x10^3/uL (0.3-0.8) H 09/23/20 15:32 Eos # (Auto) 0.9 x10^3/uL (0.0-0.2) H 09/23/20 15:32 Baso # (Auto) 0.1 X10^3/uL (0.0-0.1) 09/23/20 15:32 Absolute Nucleated RBC 0.0 /100WBC 09/23/20 15:32 PT 24.3 SECONDS (11.8-14.3) 09/23/20 15:45 INR Target Range - 09/23/20 15:45 INR 2.31 (0.8-1.3) H 09/23/20 15:45 Sodium 140 mmol/L (136-145) 09/23/20 15:32 Corrected Sodium 140 mmol/L (136-145) 09/23/20 15:32 Potassium 3.6 mmol/L (3.5-5.1) 09/23/20 15:32 Chloride 105 mmol/L (98-107) 09/23/20 15:32 Carbon Dioxide 26.0 mmol/L (21-32) 09/23/20 15:32 BUN 12 mg/dL (7-18) 09/23/20 15:32 Creatinine 0.92 mg/dL (0.70-1.30) 09/23/20 15:32 Est GFR (MDRD) Af Amer > 60 (>60) 09/23/20 15:32 Est GFR (MDRD) Non-Af > 60 (>60) 09/23/20 15:32 Glucose 112 mg/dL (65-99) H 09/23/20 15:32 Calcium 7.7 mg/dL (8.5-10.1) L 09/23/20 15:32 Corrected Calcium 9.7 mg/dL (8.5-10.1) 09/23/20 15:32 Total Bilirubin 5.20 mg/dL (0.2-1.0) H 09/23/20 15:32 AST 84 Units/L (15-37) H 09/23/20 15:32 ALT 36 Units/L (12-78) 09/23/20 15:32 Alkaline Phosphatase 210 Units/L (46-116) H 09/23/20 15:32 Total Protein 7.4 g/dL (6.4-8.2) 09/23/20 15:32 Albumin 1.5 g/dL (3.4-5.0) L 09/23/20 15:32 Globulin 5.9 g/dL (2.5-4.5) H 09/23/20 15:32 Albumin/Globulin Ratio 0.3 Ratio (1.1-2.1) L 09/23/20 15:32 Amylase 50 Units/L (25-115) 09/23/20 15:32 Lipase 96 Units/L (73-393) 09/23/20 15:32 Specimen Type Clean catch urine 09/23/20 15:45 Urine Color Elisha (YELLOW) 09/23/20 15:45 Urine Appearance Slightly hazy (CLEAR) 09/23/20 15:45 Urine pH Cancelled 09/23/20 15:45 Ur Specific [place] Cancelled 09/23/20 15:45 Urine Protein Cancelled 09/23/20 15:45 Urine Glucose (UA) Cancelled 09/23/20 15:45 Urine Ketones Cancelled 09/23/20 15:45 Urine Occult Blood Cancelled 09/23/20 15:45 Urine Nitrite Cancelled 09/23/20 15:45 Urine Bilirubin Cancelled 09/23/20 15:45 Urine Urobilinogen Cancelled 09/23/20 15:45 Ur Leukocyte Esterase Cancelled 09/23/20 15:45 Urine RBC 0-2 /HPF (0-3) 09/23/20 15:45 Urine WBC 0-2 /HPF (0-5) 09/23/20 15:45 Ur Squamous Epith Cells Rare /HPF (NEGATIVE) 09/23/20 15:45 Urine Bacteria Trace /HPF (NEGATIVE) 09/23/20 15:45 Urine Mucus Moderate /HPF (NEGATIVE) 09/23/20 15:45 Ur Culture Indicated? No/not indicated 09/23/20 15:45 SARS CoV-2 RNA Rapid TINO Negative (NEGATIVE) 09/23/20 17:07 Opioid Opioid Risk Tool Age ([place] box if 16-45): No History of Preadolescent Sexual Abuse: No Total: 0 Total Score Risk Category: Low Risk Copyright: Alejandro GARCIA predicting aberrant behaviors Diagnosis Discharge Problem: Hypercoagulable state, Hyperbilirubinemia Cirrhosis of liver Qualifiers: Hepatic cirrhosis type: unspecified hepatic cirrhosis Ascites presence: with ascites Qualified Code(s): K74.60 - Unspecified cirrhosis of liver Ascites Qualifiers: Ascites type: malignant Qualified Code(s): R18.0 - Malignant ascites Anemia Qualifiers: Anemia type: unspecified type Qualified Code(s): D64.9 - Anemia, unspecified Instructions Forms: Precautions for COVID19 Patient Portal Social Distancing
[2020-09-23 15:40] LABS: BASOPHILS # (AUTO) 0.1 X10^3/uL (0.0-0.1); BASOPHILS % (AUTO) 0.7 % (0.2-1.0); EOSINOPHILS # (AUTO) 0.9 x10^3/uL (0.0-0.2); EOSINOPHILS % (AUTO) 7.5 % (0.9-2.9); HEMATOCRIT 26.3 % (42.0-54.0); HEMOGLOBIN 8.9 g/dL (13.5-18.0); LYMPHOCYTES # (AUTO) 1.8 X10^3/uL (1.3-2.9); LYMPHOCYTES % (AUTO) 16.2 % (21.0-51.0); MEAN CORPUSCULAR HEMOGLOBIN 32.9 pg (27.0-34.0); MEAN CORPUSCULAR HGB CONC 33.7 g/dL (33.0-35.0); MEAN CORPUSCULAR VOLUME 97.6 fL (80.0-100.0); MEAN PLATELET VOLUME 9.8 fL (7.4-11.0); MONOCYTES # (AUTO) 0.9 x10^3/uL (0.3-0.8); MONOCYTES % (AUTO) 7.6 % (0.0-13.0); NEUTROPHILS # (AUTO) 7.7 x10^3/uL (2.2-4.8); PLATELET COUNT 66 X10^3/uL (150.0-450.0); RED BLOOD COUNT 2.69 X10^6/uL (4.7-6.0); RED CELL DISTRIBUTION WIDTH 16.4 % (11.6-16.5); WHITE BLOOD COUNT 11.3 X10^3/uL (3.6-10.0)
[2020-09-23 15:57] LABS: ALANINE AMINOTRANSFERASE 36 Units/L (12-78); ALBUMIN 1.5 g/dL (3.4-5.0); ALKALINE PHOSPHATASE 210 Units/L (46-116); AMYLASE 50 Units/L (25-115); ASPARTATE AMINO TRANSFERASE 84 Units/L (15-37); BLOOD UREA NITROGEN 12 mg/dL (7-18); CALCIUM 7.7 mg/dL (8.5-10.1); CHLORIDE 105 mmol/L (98-107); COR CA(FOR HYPOALB) 9.7 mg/dL (8.5-10.1); COR NA(FOR HYPERGLY) 140 mmol/L (136-145); CREATININE 0.92 mg/dL (0.70-1.30); LIPASE 96 Units/L (73-393); SODIUM 140 mmol/L (136-145); TOTAL PROTEIN 7.4 g/dL (6.4-8.2); eGFR NON BLACK RACES > 60 (>60)
[2020-09-23 16:06] LABS: APPEARANCE,URINE SLIGHTLY HAZY (CLEAR); BACTERIA,URINE TRACE /HPF (NEGATIVE); COLOR,URINE AMBER (YELLOW); MUCUS,URINE MODERATE /HPF (NEGATIVE); RBC,URINE 0-2 /HPF (0-3); SQUAMOUS EPITHELIAL CELL,UR RARE /HPF (NEGATIVE)
[2020-09-23] MEDS ORDERED: AQUA-MEPHYTON ADULT INJ SC ONE (17:41)
[2020-09-23] MEDS ORDERED: LASIX IVP ONE ×2 (17:41→17:55)
[2020-09-23] MEDS ORDERED: AQUA-MEPHYTON ADULT INJ ONE (17:58)
[2020-09-23] MEDS ORDERED: ZOFRAN INJ 4 MG VIAL IVP PRN (18:08)
[2020-09-23] MEDS: CHRONULAC PO SCH (22:46)
[2020-09-24 04:41] LABS: BASOPHILS # (AUTO) 0.1 X10^3/uL (0.0-0.1); EOSINOPHILS # (AUTO) 0.8 x10^3/uL (0.0-0.2); EOSINOPHILS % (AUTO) 9.6 % (0.9-2.9); HEMATOCRIT 25.3 % (42.0-54.0); HEMOGLOBIN 8.6 g/dL (13.5-18.0); LYMPHOCYTES # (AUTO) 1.6 X10^3/uL (1.3-2.9); LYMPHOCYTES % (AUTO) 18.9 % (21.0-51.0); MEAN CORPUSCULAR HEMOGLOBIN 33.3 pg (27.0-34.0); MEAN CORPUSCULAR HGB CONC 34.1 g/dL (33.0-35.0); MEAN CORPUSCULAR VOLUME 97.6 fL (80.0-100.0); MEAN PLATELET VOLUME 8.8 fL (7.4-11.0); MONOCYTES # (AUTO) 0.7 x10^3/uL (0.3-0.8); MONOCYTES % (AUTO) 8.7 % (0.0-13.0); NEUTROPHILS # (AUTO) 5.2 x10^3/uL (2.2-4.8); NEUTROPHILS % (AUTO) 61.8 % (42.0-75.0); PLATELET COUNT 58 X10^3/uL (150.0-450.0); RED BLOOD COUNT 2.59 X10^6/uL (4.7-6.0); RED CELL DISTRIBUTION WIDTH 16.4 % (11.6-16.5); WHITE BLOOD COUNT 8.4 X10^3/uL (3.6-10.0)
[2020-09-24 04:51] LABS: ALANINE AMINOTRANSFERASE 32 Units/L (12-78); ALBUMIN 1.4 g/dL (3.4-5.0); ALKALINE PHOSPHATASE 188 Units/L (46-116); AMYLASE 54 Units/L (25-115); ASPARTATE AMINO TRANSFERASE 83 Units/L (15-37); BLOOD UREA NITROGEN 10 mg/dL (7-18); CALCIUM 7.6 mg/dL (8.5-10.1); CARBON DIOXIDE 26.8 mmol/L (21-32); CHLORIDE 107 mmol/L (98-107); COR CA(FOR HYPOALB) 9.7 mg/dL (8.5-10.1); CREATININE 0.89 mg/dL (0.70-1.30); LIPASE 92 Units/L (73-393); SODIUM 142 mmol/L (136-145); TOTAL PROTEIN 6.8 g/dL (6.4-8.2); eGFR NON BLACK RACES > 60 (>60)
[2020-09-24] MEDS ORDERED: POTASSIUM CHL 40 MEQ/NS 0.45% 500 ML IV PRN (06:58)
[2020-09-24] MEDS ORDERED: POTASSIUM CHLORIDE LIQ 20 MEQ UDC PO PRN (06:58)
[2020-09-24] MEDS ORDERED: K-RIDER 10 MEQ/NS 100 ML 10 MEQ/100 ML BAG IV PRN (06:58)
[2020-09-24] MEDS ORDERED: KLOR-CON PO PRN (06:58)
[2020-09-24] MEDS ORDERED: POTASSIUM CHL 60 MEQ/NS 0.45% 500 ML IV PRN (06:58)
[2020-09-24] MEDS ORDERED: MICRO K EXTEN CAP 10 MEQ PO PRN (06:58)
[2020-09-24] MEDS: K-DUR TAB 20 MEQ PO PRN ×2 (08:14→23:18)
[2020-09-24] MEDS: LASIX IVP SCH (08:14)
[2020-09-24] MEDS: MAGNESIUM SULFATE 1 GRAM/100 mL PREMIX 1 GM/100 ML BAG IV PRN ×2 (08:16→23:18)
[2020-09-24] MEDS: CHRONULAC PO SCH ×2 (08:20→20:25)
[2020-09-24] MEDS ORDERED: NS 500 ML IV 500 ML IV ONE (08:30)
[2020-09-24] MEDS ORDERED: ALDACTONE TAB 25 MG PO SCH (09:00)
--- NOTE | 2020-09-24 12:14 | DR.H&P ---
H&P - History & Physical for Day of: H&P Date: 09/23/20 - Chief Complaint Chief Complaint: ABDOMINAL SWELLING, SOB - History of Present Illness History of Present Illness: PATIENT IS 39YR OLD MALE IN ER WITH ABDOMINAL DISTENSION AND TENSE ASCITIS THAT IS PROGRESIVE FOR FEW WEEKS. GETTING WORSE. LOWER LEGS SWOLLEN AND HAVING PRURITUS. DYSPNEA ON EXERTION AND AT REST. PAIN IS 10/10 RADIATING TO THE BACK. NO FEVER. IN HOSPITAL AT THIS FACILITY 08/28/2020 FOR SIMILAR SYMPTOM. PT HAS LIVER DISEASE. PT ADMITTED FOR TREATMENT OF ACUTE ILLNESS - Past Medical History Past Medical History: Hypertension, Liver Disease - Past Surgical History Surgical History: Cholecystectomy - Social History Does patient currently use any type of tobacco product: No Have you used tobacco products in the last 12 months: No Type of Tobacco Use: None Alcohol Use: DAILY Drug Use: None Risks, benefits, and alternatives of opioids discussed: No - Medications Home Medications: No Known Drug Allergies Allergy (Verified 08/28/20 14:04) - Review of Systems Constitutional: Weakness Eyes: No Symptoms Reported ENT: No Symptoms Reported Respiratory: Shortness of Breath, SOB with Excertion Cardiovascular: Edema Gastrointestinal: Abdominal Pain Genitourinary: No Symptoms Reported Musculoskeletal: No Symptoms Reported Skin: No Symptoms Reported Neurological: No Symptoms Reported - Physical Exam Vital Signs: Temperature 97.2 F Pulse Rate [Apical] 75 Pulse Rate 82 Respiratory Rate 19 Blood Pressure [Left Arm] 116/67 Blood Pressure 145/68 O2 Sat by Pulse Oximetry 99 Oriented: Normal Eyes: Normal Ear: Normal Nose: Normal Throat: Normal Respiratory: RLL Diminished, LLL Diminished Cardiovascular: Normal : Normal Palpation: Liver Enlarged, Other (ASCITES) Tenderness: Diffuse Skin: Normal Musculoskeletal: Normal Psychiatric: Anxiety Mood Description: Calm Speech Pattern: Clear, Appropriate - Assessment/Plan (1) Ascites Qualifiers: Ascites type: malignant Qualified Code(s): R18.0 - Malignant ascites Status: Acute Plan: ADMIT, KUB. VERIFY HOME MEDICATION. PT/INR, AM CBC AND CMP. CONSULT FOR PARACENTESIS. MAG REPLACEMENT (2) Cirrhosis of liver Qualifiers: Hepatic cirrhosis type: unspecified hepatic cirrhosis Ascites presence: wit h ascites Qualified Code(s): K74.60 - Unspecified cirrhosis of liver; R18.8 - Other ascites Status: Acute - Allergies Allergies/Adverse Reactions: Allergies Allergy/AdvReac Type Severity Reaction Status Date / Time No Known Drug Allergies Allergy Verified 08/28/20 14:04
[2020-09-24] MEDS ORDERED: XYLOCAINE 1% and EPINEPHRINE 1:100,000 ONE (13:08)
[2020-09-24] MEDS ORDERED: TORADOL 30 MG VIAL IVP ONE (18:00)
[2020-09-24] MEDS: ALDACTONE TAB 25 MG PO SCH (18:10)
[2020-09-24] MEDS: AQUA-MEPHYTON ADULT INJ SC SCH (18:13)
[2020-09-24] MEDS: LOPRESSOR TAB 25 MG PO SCH ×2 (18:15→20:28)
[2020-09-24] MEDS ORDERED: NS 250 ML IV 250 ML IV ONE (22:57)
[2020-09-25] MEDS: AQUA-MEPHYTON ADULT INJ SC SCH ×2 (00:25→05:59)
--- NOTE | 2020-09-25 05:16 | RAD ---
PROCEDURE: Abdomen X-ray 1 View .HISTORY: Abdomen distension.TECHNIQUE: AP supine abdomen view .COMPARISON: None .TECHNICAL QUALITY: Satisfactory .FINDINGS:Scattered gas and feces in the colon without distention. Small amount air in the stomach. No obstruction or ileus.No organomegaly.No abnormal calcifications.No acute bony abnormality.IMPRESSION:Nonspecific bowel-gas pattern.Electronically signed by: Everett Little (Sep 25, 2020 05:14:09)
[2020-09-25 05:18] LABS: ALANINE AMINOTRANSFERASE 26 Units/L (12-78); ALBUMIN 1.6 g/dL (3.4-5.0); ALKALINE PHOSPHATASE 181 Units/L (46-116); ASPARTATE AMINO TRANSFERASE 68 Units/L (15-37); BLOOD UREA NITROGEN 11 mg/dL (7-18); CALCIUM 7.6 mg/dL (8.5-10.1); CARBON DIOXIDE 27.4 mmol/L (21-32); CHLORIDE 109 mmol/L (98-107); COR CA(FOR HYPOALB) 9.5 mg/dL (8.5-10.1); CREATININE 0.88 mg/dL (0.70-1.30); SODIUM 142 mmol/L (136-145); TOTAL PROTEIN 6.5 g/dL (6.4-8.2); eGFR NON BLACK RACES > 60 (>60)
[2020-09-25 05:26] LABS: BASOPHILS # (AUTO) 0.1 X10^3/uL (0.0-0.1); BASOPHILS % (AUTO) 0.8 % (0.2-1.0); EOSINOPHILS # (AUTO) 0.8 x10^3/uL (0.0-0.2); EOSINOPHILS % (AUTO) 9.2 % (0.9-2.9); HEMATOCRIT 27.1 % (42.0-54.0); HEMOGLOBIN 9.2 g/dL (13.5-18.0); LYMPHOCYTES # (AUTO) 1.7 X10^3/uL (1.3-2.9); LYMPHOCYTES % (AUTO) 19.5 % (21.0-51.0); MEAN CORPUSCULAR HEMOGLOBIN 33.3 pg (27.0-34.0); MEAN CORPUSCULAR HGB CONC 33.9 g/dL (33.0-35.0); MEAN CORPUSCULAR VOLUME 98.3 fL (80.0-100.0); MEAN PLATELET VOLUME 9.1 fL (7.4-11.0); MONOCYTES # (AUTO) 0.7 x10^3/uL (0.3-0.8); MONOCYTES % (AUTO) 7.5 % (0.0-13.0); NEUTROPHILS # (AUTO) 5.6 x10^3/uL (2.2-4.8); PLATELET COUNT 55 X10^3/uL (150.0-450.0); RED BLOOD COUNT 2.75 X10^6/uL (4.7-6.0); RED CELL DISTRIBUTION WIDTH 16.1 % (11.6-16.5); WHITE BLOOD COUNT 8.9 X10^3/uL (3.6-10.0)
[2020-09-25] MEDS: LOPRESSOR TAB 25 MG PO SCH (08:37)
[2020-09-25] MEDS: LASIX IVP SCH (10:00)
[2020-09-25] MEDS: CHRONULAC PO SCH (10:00)
[2020-09-25] MEDS: ALDACTONE TAB 25 MG PO SCH (10:00)
[2020-09-25 13:19] VITALS: BP 126/64
== END 2020-09-25 16:15 | disposition home or self-care (01) | DRG 433 ==
LOC: ER 14:43 → OBS 14:43 → OBSVTOIN 18:08 → MED/SURG 20:49
PROVIDERS: ADMIT Internal Medicine; ATTEND Internal Medicine
DX: R06.02 Shortness of breath; D64.89 Other specified anemias; E80.6 Other disorders of bilirubin metabolism; K74.60 Unspecified cirrhosis of liver; R18.0 Malignant ascites; I10 Essential (primary) hypertension; R79.1 Abnormal coagulation profile; R60.0 Localized edema

== ENCOUNTER 2020-11-21 09:28 | Observation (INO) ==
--- NOTE | 2020-11-21 10:37 | DR.ABDMALE ---
HPI Time seen Time Seen by Provider: 11/21/20 10:28 PCP Primary Care Physician: Ramírez HPI comment HPI Comment: PATIENT WITH A HISTORY OF CIRRHOSIS WITH ASCITES COMPLAINS OF PENILE AND SCROTAL SWELLING. HAS ASSOCIATED INCREASING ABDOMINAL SWELLING, DENIES ABDOMINAL PAIN, NAUSEA, EMESIS, FEVER OR CHILLS. Complaint Chief Complaint Doctors Comments: PENILE AND SCROTAL SWELLING, INCREASED ABDOMINAL SWELLING Chief Complaint:: Pt c/o abdominal pain and swelling. He states he has had paracentesis done before. COVID-19 Coronavirus risk:travel/contact w/high risk person: No Has patient experienced Coronavirus symptoms: No Reviewed Nurses Notes Review: Yes Mode of arrival Mode of Arrival: Ambulatory Timing Onset of Chief Complaint: 11/21/20 Came on: Gradually Duration How lon Duration: Days Location Location: Diffuse Modifying factors Worsening Factors: Nothing Associated signs and symptoms Associated Signs and Symptoms: Other (PENILE, SCROTAL SWELLING) PMH PMH Past Medical History: Yes Past Medical History: Hypertension and Liver Disease Past Surgical History: Yes Surgical History: Cholecystectomy Family History History of Family Medical Conditions: No Social History Does patient currently use any type of tobacco product: No Have you used tobacco products in the last 12 months: No Type of Tobacco Use: None Does any household member use tobacco: No Alcohol Use: None Do you use any recreational Drugs:: No Lives Where: Home Travel Risk Coronavirus risk:travel/contact w/high risk person: No Has patient experienced Coronavirus symptoms: No Infectious screening In the last 2 months have you had wt loss of >10#?: NO Have you had fever, night sweats or hemotysis?: No Have you traveled outside the country in the last 6 months?: No Isolation: Standard ROS Review of Systems Constitutional: See HPI Eyes: No Symptoms Reported ENTM: No Symptoms Reported Respiratoy: No Symptoms Reported Cardiovascular: No Symptoms Reported Gastrointestinal/Abdominal: See HPI and Other (INCREASING ASCITES) Genitourinary: See HPI Neurological: No Symptoms Reported Musculoskeletal: No Symptoms Reported Integumentary: No Symptoms Reported Hematologic/Lymphatic: No Symptoms Reported Endocrine: No Symptoms Reported Psychiatric: No Symptoms Reported All Other Systems: Reviewed and Negative PE Vital Signs Vital Signs: Temp Pulse Resp BP BP Pulse Ox 11/21/20 09:32 98.1 F 100 H 20 132/76 98 11/20/20 13:33 127/85 09/25/20 12:00 126/64 General General Appearance: Alert and In No Apparent Distress Head Head Exam: Normal Inspection and Atraumatic Eyes Eye exam: Normal Appearance, PERRL and Scleral Icterus Respiratory Respiratory Exam: Normal Lung Sounds Bilat Respiratory Exam: Bilateral: Clear to Auscultation Abdominal Exam Abdominal Exam: Normal Bowel Sounds, Soft (TENSE MARKED ASCITES) and Distention (MARKED ASCITES NONTENDER) Back Back Exam: Normal Inspection and Full ROM Extremeties Extremities Exam: Normal Inspection, Full ROM and Edema (2+ EDEMA) Exam: Male: Scrotal Swelling (PENILE SWELLING) Neurologic Neurological Exam: Alert and Oriented X3 Psychiatric Psychiatric Exam: Normal Affect and Normal Mood MDM Differential Diagnosis Other differential diagnosis: CHRONIC CIRRHOSIS, MARKED ASCITES COURSE Treatment Treatment: SALINE LOCK, LASIX 40MG IV Consultation Call Returned: 14:49 Consultation Comments: DISCUSSED FINDINGS WITH DR MCMAHON FOR OBSERVATION ROR Labs Reviewed Laboratory Results Reviewed?: Yes Result Diagrams: 11/21/20 10:59 11/21/20 10:59 Laboratory: WBC 5.1 X10^3/uL (3.6-10.0) 11/21/20 10:59 RBC 2.58 X10^6/uL (4.7-6.0) L 11/21/20 10:59 Hgb 8.4 g/dL (13.5-18.0) L 11/21/20 10:59 Hct 25.0 % (42.0-54.0) L 11/21/20 10:59 MCV 96.9 fL (80.0-100.0) 11/21/20 10:59 MCH 32.7 pg (27.0-34.0) 11/21/20 10:59 MCHC 33.8 g/dL (33.0-35.0) 11/21/20 10:59 RDW 15.9 % (11.6-16.5) 11/21/20 10:59 Plt Count 73 X10^3/uL (150.0-450.0) L 11/21/20 10:59 MPV 7.9 fL (7.4-11.0) 11/21/20 10:59 Neut % (Auto) 66.4 % (42.0-75.0) 11/21/20 10:59 Lymph % (Auto) 20.8 % (21.0-51.0) L 11/21/20 10:59 [place] % (Auto) 8.7 % (0.0-13.0) 11/21/20 10:59 Eos % (Auto) 3.1 % (0.9-2.9) H 11/21/20 10:59 Baso % (Auto) 1.0 % (0.2-1.0) 11/21/20 10:59 Neut # (Auto) 3.4 x10^3/uL (2.2-4.8) 11/21/20 10:59 Lymph # (Auto) 1.1 X10^3/uL (1.3-2.9) L 11/21/20 10:59 [place] # (Auto) 0.4 x10^3/uL (0.3-0.8) 11/21/20 10:59 Eos # (Auto) 0.2 x10^3/uL (0.0-0.2) 11/21/20 10:59 Baso # (Auto) 0.0 X10^3/uL (0.0-0.1) 11/21/20 10:59 Absolute Nucleated RBC 0.0 /100WBC 11/21/20 10:59 PT 22.6 SECONDS (11.8-14.3) 11/21/20 10:59 INR Target Range - 11/21/20 10:59 INR 2.11 (0.8-1.3) H 11/21/20 10:59 Sodium 134 mmol/L (136-145) L 11/21/20 10:59 Corrected Sodium 136 mmol/L (136-145) 11/21/20 10:59 Potassium 3.5 mmol/L (3.5-5.1) 11/21/20 10:59 Chloride 103 mmol/L (98-107) 11/21/20 10:59 Carbon Dioxide 23.7 mmol/L (21-32) 11/21/20 10:59 BUN 18 mg/dL (7-18) 11/21/20 10:59 Creatinine 1.11 mg/dL (0.70-1.30) 11/21/20 10:59 Est GFR (MDRD) Af Amer > 60 (>60) 11/21/20 10:59 Est GFR (MDRD) Non-Af > 60 (>60) 11/21/20 10:59 Glucose 181 mg/dL (65-99) H 11/21/20 10:59 Calcium 7.5 mg/dL (8.5-10.1) L 11/21/20 10:59 Corrected Calcium 9.5 mg/dL (8.5-10.1) 11/21/20 10:59 Total Bilirubin 3.00 mg/dL (0.2-1.0) H 11/21/20 10:59 AST 68 Units/L (15-37) H 11/21/20 10:59 ALT 36 Units/L (12-78) 11/21/20 10:59 Alkaline Phosphatase 184 Units/L (46-116) H 11/21/20 10:59 Ammonia 42 umol/L (11-32) H 11/21/20 10:59 Total Protein 6.7 g/dL (6.4-8.2) 11/21/20 10:59 Albumin 1.5 g/dL (3.4-5.0) L 11/21/20 10:59 Globulin 5.2 g/dL (2.5-4.5) H 11/21/20 10:59 Albumin/Globulin Ratio 0.3 Ratio (1.1-2.1) L 11/21/20 10:59 Amylase 76 Units/L (25-115) 11/21/20 10:59 Lipase 64 Units/L (73-393) L 11/21/20 10:59 Opioid Opioid Risk Tool Age ([place] box if 16-45): No History of Preadolescent Sexual Abuse: No Total: 0 Total Score Risk Category: Low Risk Copyright: Alejandro GARCIA predicting aberrant behaviors Diagnosis Discharge Problem: Cirrhosis, Ascites
[2020-11-21] MEDS ORDERED: LASIX IVP ONE (11:06)
[2020-11-21] MEDS: LASIX IVP ONE ×2 (11:08→11:56)
[2020-11-21 11:38] LABS: EOSINOPHILS # (AUTO) 0.2 x10^3/uL (0.0-0.2); EOSINOPHILS % (AUTO) 3.1 % (0.9-2.9); HEMOGLOBIN 8.4 g/dL (13.5-18.0); LYMPHOCYTES # (AUTO) 1.1 X10^3/uL (1.3-2.9); LYMPHOCYTES % (AUTO) 20.8 % (21.0-51.0); MEAN CORPUSCULAR HEMOGLOBIN 32.7 pg (27.0-34.0); MEAN CORPUSCULAR HGB CONC 33.8 g/dL (33.0-35.0); MEAN CORPUSCULAR VOLUME 96.9 fL (80.0-100.0); MEAN PLATELET VOLUME 7.9 fL (7.4-11.0); MONOCYTES # (AUTO) 0.4 x10^3/uL (0.3-0.8); MONOCYTES % (AUTO) 8.7 % (0.0-13.0); NEUTROPHILS # (AUTO) 3.4 x10^3/uL (2.2-4.8); NEUTROPHILS % (AUTO) 66.4 % (42.0-75.0); PLATELET COUNT 73 X10^3/uL (150.0-450.0); RED BLOOD COUNT 2.58 X10^6/uL (4.7-6.0); RED CELL DISTRIBUTION WIDTH 15.9 % (11.6-16.5); WHITE BLOOD COUNT 5.1 X10^3/uL (3.6-10.0)
[2020-11-21 11:45] LABS: ALANINE AMINOTRANSFERASE 36 Units/L (12-78); ALBUMIN 1.5 g/dL (3.4-5.0); ALKALINE PHOSPHATASE 184 Units/L (46-116); AMYLASE 76 Units/L (25-115); ASPARTATE AMINO TRANSFERASE 68 Units/L (15-37); BLOOD UREA NITROGEN 18 mg/dL (7-18); CALCIUM 7.5 mg/dL (8.5-10.1); CARBON DIOXIDE 23.7 mmol/L (21-32); CHLORIDE 103 mmol/L (98-107); COR CA(FOR HYPOALB) 9.5 mg/dL (8.5-10.1); COR NA(FOR HYPERGLY) 136 mmol/L (136-145); CREATININE 1.11 mg/dL (0.70-1.30); LIPASE 64 Units/L (73-393); SODIUM 134 mmol/L (136-145); TOTAL PROTEIN 6.7 g/dL (6.4-8.2); eGFR NON BLACK RACES > 60 (>60)
[2020-11-21 11:53] LABS: AMMONIA 42 umol/L (11-32)
[2020-11-21] MEDS ORDERED: CHRONULAC ONE (13:11)
[2020-11-21] MEDS: CHRONULAC PO STA (13:12)
[2020-11-21] MEDS ORDERED: ALBUMIN HUMAN 25%- 100 ML 100 ML IV ONE ×2 (19:16→19:22)
[2020-11-21] MEDS ORDERED: ALDACTONE TAB 25 MG PO SCH (21:00)
[2020-11-22] MEDS: CHRONULAC PO STA (00:16)
[2020-11-22] MEDS: ALDACTONE TAB 25 MG PO SCH ×2 (00:39→09:17)
[2020-11-22 00:56] VITALS: BMI 39.0
[2020-11-22] MEDS ORDERED: LASIX PO SCH ×2 (09:00)
[2020-11-22] MEDS ORDERED: ALBUMIN HUMAN 25%- 100 ML 100 ML IV SCH ×2 (09:00)
[2020-11-22 09:32] LABS: ALANINE AMINOTRANSFERASE 30 Units/L (12-78); ALBUMIN 1.9 g/dL (3.4-5.0); ALKALINE PHOSPHATASE 160 Units/L (46-116); ASPARTATE AMINO TRANSFERASE 59 Units/L (15-37); BLOOD UREA NITROGEN 13 mg/dL (7-18); CALCIUM 7.5 mg/dL (8.5-10.1); CARBON DIOXIDE 26.6 mmol/L (21-32); CHLORIDE 104 mmol/L (98-107); COR CA(FOR HYPOALB) 9.2 mg/dL (8.5-10.1); COR NA(FOR HYPERGLY) 139 mmol/L (136-145); CREATININE 0.94 mg/dL (0.70-1.30); SODIUM 137 mmol/L (136-145); TOTAL PROTEIN 6.2 g/dL (6.4-8.2); eGFR NON BLACK RACES > 60 (>60)
[2020-11-22] MEDS ORDERED: ALBUMIN HUMAN 25%- 100 ML 100 ML IV ONE (13:23)
[2020-11-22 16:09] VITALS: BP 111/62
== END 2020-11-22 16:17 | disposition home or self-care (01) ==
LOC: OBS 09:31 → ER 09:31
PROVIDERS: ADMIT Surgery; ATTEND Surgery
DX: R60.0 Localized edema; I10 Essential (primary) hypertension; E88.09 Other disorders of plasma-protein metabolism, not elsewhere classified; N50.89 Other specified disorders of the male genital organs; F10.10 Alcohol abuse, uncomplicated; K70.31 Alcoholic cirrhosis of liver with ascites; Z20.822 Contact with and (suspected) exposure to COVID-19; R79.1 Abnormal coagulation profile; R06.02 Shortness of breath; R79.89 Other specified abnormal findings of blood chemistry